=== PATIENT | male | born 1985 | race African-American/Black ===

== ENCOUNTER 2022-01-07 09:40 | Emergency (ER) | payer SELFPAY ==
[2022-01-07] MEDS ORDERED: Ondansetron ODT 4 MG TAB ONE (10:29)
[2022-01-07] MEDS ORDERED: Dicyclomine 10 MG CAP ONE (10:29)
[2022-01-07] MEDS ORDERED: Ibuprofen 800 MG TAB ONE (12:12)
== END 2022-01-07 12:17 | disposition home or self-care (01) ==
LOC: MADERS 09:40
DX: R11.2 Nausea with vomiting, unspecified (principal); R19.7 Diarrhea, unspecified; R10.84 Generalized abdominal pain; F17.210 Nicotine dependence, cigarettes, uncomplicated
CPT/HCPCS: 99283; Q0162

== ENCOUNTER 2024-02-02 18:11 | Emergency (ER) | payer SELFPAY ==
[2024-02-02] MEDS ORDERED: Ondansetron PF 4 MG/2 ML Vial ONE (18:36)
[2024-02-02] MEDS ORDERED: Ketorolac Tromethamine 30 MG (1 mL) VIAL ONE (18:36)
[2024-02-02] MEDS ORDERED: Sodium Chloride 0.9% 1,000 ML ONE (18:36)
[2024-02-02 18:55] LABS: Band 10 % (5-11); Hematocrit 46.9 % (42.0-52.0); Hemoglobin 14.3 g/dL (14.0-18.0); Hypochromia SLIGHT = 6-15 cells (100X) (0-5/hpf); Lymphocytes 15 % (21-51); MDiff Complete? YES; Mean Corpuscular HGB CONC 30.5 g/dL (32.0-36.0); Mean Corpuscular Hemoglobin 28.9 pg (27.0-31.0); Mean Corpuscular Volume 94.7 fl (78.0-98.0); Mean Platelet Volume 8.7 fL (7.4-10.4); Monocytes 6 % (0-10); Neutrophil 68 % (42-75); Platelet Adequacy Comment Appears Adequate; Platelet Count 193 10x3/uL (130-400); RBC Distribution Width 12.8 % (11.5-14.5); Red Blood Cell (RBC) Count 4.95 mill/uL (4.70-6.10); White Blood Cell (WBC) Count 8.3 10x3/uL (4.8-10.8)
[2024-02-02 19:00] LABS: ALT (SGPT) 17 U/L (8-55); AST (SGOT) 16 U/L (5-34); Albumin 4.3 g/dL (3.5-5.0); Alkaline Phosphatase 60 U/L (40-110); Anion Gap 15 mmol/L (10-20); BUN (Urea Nitrogen) 12 mg/dL (8.9-20.6); Bilirubin, Total 0.7 mg/dL (0.2-1.2); Calc. Creatinine Clearance 0 mL/min (70-130); Calcium 9.1 mg/dL (7.8-10.44); Carbon Dioxide 21 mmol/L (22-29); Chloride 102 mmol/L (98-107); Estimated GFR 81; Globulin 3.2 g/dL (2.4-3.5); Glucose 113 mg/dL (70-105); Lipase 14 U/L (8-78); Magnesium 1.5 mg/dL (1.6-2.6); Potassium 3.3 mmol/L (3.5-5.1); Protein, Total 7.5 g/dL (6.0-8.3); Sodium 135 mmol/L (136-145)
[2024-02-02 19:07] LABS: SARS-CoV-2 E Target Negative; SARS-CoV-2 N2 Target Negative; SARS-CoV-2 NAA Rapid Test Not Detected (NotDetected); SARS-CoV-2 RdRP gene Negative
[2024-02-02] MEDS ORDERED: Magnesium Oxide 400 MG TAB ONE (19:19)
[2024-02-02] MEDS ORDERED: Potassium Chloride 20 MEQ TAB ONE (19:19)
== END 2024-02-02 19:46 | disposition home or self-care (01) ==
LOC: MADERS 18:11
DX: K52.9 Noninfective gastroenteritis and colitis, unspecified (principal); E87.6 Hypokalemia; E83.42 Hypomagnesemia; F17.210 Nicotine dependence, cigarettes, uncomplicated
CPT/HCPCS: 80053; 83690; 83735; 85025; 87804; 96361; 96374; 96375; J1885; J2405; J7050; U0002